=== PATIENT | female | born 1945 | race Caucasian/White ===

== ENCOUNTER 2020-02-26 08:24 | Outpatient (CLI) | payer OTHER | END 2020-02-26 08:37 | disposition home or self-care (01) | LOC: SONOGRAMA 08:24 | PROVIDERS: ATTEND Pathology Anatomic Pathology & Clinical Pathology | DX: D44.0 Neoplasm of uncertain behavior of thyroid gland (principal) ==

== ENCOUNTER 2021-11-03 08:00 | Outpatient (CLI) | payer OTHER | END 2021-11-03 08:04 | disposition home or self-care (01) | LOC: SONOGRAMA 08:00 | PROVIDERS: ATTEND Pathology Anatomic Pathology & Clinical Pathology | DX: E04.1 Nontoxic single thyroid nodule (principal) ==